=== PATIENT | female | born 1960 | race Caucasian/White ===

== ENCOUNTER → 2021-04-05 | Outpatient (CLI) | payer OTHER ==
[2014-04-17 11:25] VITALS: BP 96/53
[~2021-04-05] MED LIST: ACET500T33 PO; ASCO500C PO; CALC500T54 PO; CALC625T PO; CHOL5000 PO; CYCL1DRO OP; DOCU50CA9 PO; FEXO1TAB27 PO; GUAI-40 PO; HYDR-2761 PO; IBUP200T58 PO; LACT1CAP37 PO; LEVO50TA5 PO; LYSI500T8 PO; MELA5TAB20 PO; OMEG1CAP27 PO; OMEP20CA16 PO; PANT40TA77 PO; POLY17PO29 PO; TRIA10.8 NS; ZINC50TA39 PO
--- NOTE | 2021-04-05 17:17 | PDOC1 ---
INITIAL PAIN CONSULT DATE OF SERVICE: DOS: DATE: 04/05/21 TIME: 17:10 CHIEF COMPLAINT: Chief Complaint: Low back and left lower extremity pain HISTORY OF PRESENT ILLNESS: 60-year-old female presents with history of pain low back and left lower extremity since 2016. Patient reports not the result of any specific injury or accident that she is aware but is been getting worse with time with pain in the low back rating to left lower extremity mostly in the posterior gluteus lateral thigh anterior thigh medial thigh medial lower leg as well as in the calf and some in the lateral calf with numbness and tingling in all of the toes. Patient reports standing is worse sometimes walking can help but sometimes it makes it worse as well wakes her up at night fairly frequently does not affect her bowel bladder control does affect her ability to walk on occasion but she is not use any assistive devices. Patient reports she has had physical therapy as well as chiropractic treatment and is currently doing exercise which did all help decrease the pain but not significantly patient reports he is taking Advil as well as Tylenol which helped the pain but only by about 20 to 30% as well patient rates her disability rating 0-10 10 being the worst is a 7 with family home responsibilities for with recreation 1 with social activity 5 with occupation and sexual behavior 0 with self-care and life support activities. Patient is recent seen her neurosurgeon who is recommending conservative therapies at this time. Patient did have an MRI scan of the lumbar spine showing multilevel degenerative changes L4-5 showing diffuse annular disc bulging most pronounced left laterally resulting in mild right foraminal narrowing and mild to moderate left foraminal narrowing small synovial cyst at the L5-S1 level on the posterior facet joints without significant foraminal narrowing. Patient describes the pain as throbbing aching tingling with numbness radiating pain to the lower extremities and aching in the back as well PAST MEDICAL HISTORY: PMH: Arthritis, hearing loss, gastroesophageal reflux PREVIOUS SURGERIES: Past Surgical Hx: Cervical fusion C5-6, cholecystectomy, sinus surgery, bilateral cataract extraction, tonsillectomy, ear surgery CURRENT MEDICATIONS: Current Meds: Active Scripts Medications Dose Route/Sig Max Daily Dose Days Date Category Dose Instructions Melatonin 5 Mg Tab.rapdis 1 Tab PO QHS 30 04/05/21 Reported Probiotic (Lactobacillus Combo No.10) 1 Each Capsule 1 Tab PO DAILY 04/05/21 Reported Zinc 50 Mg Tablet 50 Mg PO DAILY 04/05/21 Reported Stool Softener (Docusate Sodium) 50 Mg Capsule 5 Cap PO DAILY 30 04/05/21 Reported Vitamin D3 (Vitamin D) 125 Mcg Capsule 125 Mcg PO DAILY 04/05/21 Reported 5,000 UNITS = 125 MCG Vitamin C (Ascorbic Acid) 500 Mg Capsule.er 1 Cap PO DAILY 30 04/05/21 Reported Calcium (Calcium Carbonate) 500 Mg Tab.chew 2 Tab PO BID 30 04/05/21 Reported Fish Oil 1,000 Mg Softgel ([place]-3 Fatty Acids/Fish Oil) 1 Each Capsule 2 Cap PO DAILY 30 04/05/21 Reported WITH MEALS L-Lysine (Lysine) 500 Mg Tablet 1,000 Mg PO DAILY 04/05/21 Reported Cequa (Cyclosporine) 1 Each Droperette 1 Each OP DAILY 04/05/21 Reported Omeprazole 20 Mg Capsule.dr 1 Cap PO DAILY 04/05/21 Reported Levothyroxine Sodium 50 Mcg Tablet 1 Tab PO DAILY 04/05/21 Reported Nasacort (Triamcinolone Acetonide) 10.8 Ml [place] 2 [place] NS DAILY 04/05/21 Reported Lily-D 12 Hour Tablet (Fexofenadine/Pseudoephedrine) 1 Each Tab.er.12h 1 Tab PO BID 10 04/05/21 Reported Fibercon (Calcium Polycarbophil) 625 Mg Tablet 3 Tab PO HS 04/05/14 Reported Last dose 04/16 next dose due 04/17 at bedtime. Miralax (Polyethylene Glycol 3350) 17 Gm Powd.pack 1 Pkt PO DAILY 04/05/14 Reported Not given this hospitalization May resume at home as ordered by doctor. ALLERGIES; Allergies: Coded Allergies: lactose (Verified Allergy, Intermediate, Nausea and Vomiting, 04/17/14) causes increased mucous and exacerbates sinus allergies FAMILY HISTORY: Family Hx: Parkinson's disease, dementia, diabetes SOCIAL HISTORY: Social Hx: Patient is nondrug alcohol does not smoke says any illegal is recreational drugs is lives with her spouse with 1 child living at home and lives in [facility] REVIEW OF SYSTEMS: ROS: Positive for those items mentioned in history of present illness, all systems are reviewed, otherwise negative ,and are complete full and well-documented on patient's chart. PHYSICAL EXAM: VS: Blood pressure is 108/63 pulse 84 respirations 16 temperature 90.0 F height is 5 feet 3 inches weight is 114 pounds PE: PHYSICAL EXAMINATION: GENERAL: The patient is awake, alert, oriented, appropriate, very pleasant in demeanor HEENT: Shows normocephalic, atraumatic. Extraocular movements are intact and symmetrical. Oral cavity: Mucous membranes moist and pink. Dentition is intact. NECK: Shows anterior throat supple without palpable lymphadenopathy noted. Swallow reflex symmetrical. CHEST: Shows normal on inspection. Breath sounds are clear bilaterally, distant but no rales rhonchi wheezes auscultated. HEART: Shows S1, S2 clear. No murmurs auscultated. ABDOMEN: Soft, nontender, nondistended. No palpable organomegaly is noted. BACK: Shows spine grossly in the midline. Normal-appearing cervical lordotic curvature. There is mildly increased thoracic kyphosis, some minor flattening of the lumbar lordotic curvature. Lumbar paraspinous muscles show symmetrical on inspection, on palpation shows some moderate tenderness diffusely throughout the upper, middle and lower distribution of the paraspinous muscles bilaterally and also into the lower thoracic paraspinous musculature, firm and tender, without specific trigger points, without radiation of pain. The patient has good rotational motion of the lumbar spine, both laterally as well as extension and flexion without significant difficulty. No tenderness over the spinous processes, sacrum or sacroiliac regions. EXTREMITIES: Lower extremities show deep tendon reflexes 2+ in the patellar and tendo calcaneus tendons. Motor exam is 5 on a scale of 5 with right dorsiflexion, extension, quadriceps and hamstring flexion and 4/5 on the left. Peripheral pulses are 1 posterior tibial. No peripheral edema is noted bilaterally. Lower extremities are warm and dry to touch, equal in color and appearance. Straight leg raise noted to be negative on the right, positive on the left at approximate 40 degrees decreased with knee flexion. Gaenslen's and Curtis's maneuvers are negative bilaterally. The patient is able to stand, stand on her toes that significant difficulty loss of balance, walks with a normal-appearing gait appear to favor her left lower extremity significantly is not use any assistive devices to ambulate. SKIN: Shows warm and dry, good turgor. No edema. No sores, rashes or bruising throughout. IMPRESSION: Impression: 60-year-old female with approximate 5-year history low back left lower extremity pain and radicular fashion following L4-5 dermatomal distribution. MRI scan lumbar spine as noted Arthritis Plan: Options were discussed with patient including continued physical therapies medication management and interventional techniques. Patient would like to pursue eventual techniques as she is done physical therapy as well as chiropractic treatment without significant improvement as well as oral analgesics without significant reduction in pain. We discussed a lumbar transforaminal epidural steroid injection description as well as anatomical models described procedure. Patient would like to proceed. Patient will wait for preauthorization with her insurance provider, once obtained we will proceed with a transforaminal lumbar epidural steroid injection at the L4-5 level on the left with fluoroscopic guidance. In the meantime, patient continue with stretching strength exercises as tolerated as well as oral analgesics as currently. SANDRA BOYER MD Apr 05, 2021 17:16
== END | disposition home or self-care (01) ==
LOC: PNCL 08:19
PROVIDERS: ATTEND Anesthesiology
DX: M54.16 Radiculopathy, lumbar region (principal); G89.29 Other chronic pain; K21.9 Gastro-esophageal reflux disease without esophagitis; M19.90 Unspecified osteoarthritis, unspecified site; Z98.890 Other specified postprocedural states; Z79.899 Other long term (current) drug therapy; Z98.41 Cataract extraction status, right eye; Z98.42 Cataract extraction status, left eye
CPT/HCPCS: 99214; G0463

== ENCOUNTER → 2021-04-19 | Outpatient (CLI) | payer OTHER ==
[2014-04-17 11:25] VITALS: BP 96/53
[~2021-04-19] MED LIST changes: +BUPIVACAINE MPF 0.25% 10 ML VIAL. ONE; +IOHEXOL 180 MG/ML 10 ML VIAL. ONE; +methylPREDNISolone ACETATE 80 MG/ML VIAL. ONE
--- NOTE | 2021-04-19 08:43 | PDOC ---
Progress Note - Pain Clinic Date of Service: DOS: DATE: 04/19/21 TIME: 08:38 Diagnosis: Dx: Lumbar radiculopathy with lumbar degenerative disc disease History or Present Illness: HPI: 60-year-old female returns for follow-up status post evaluation with complaints of low back and left lower extremity pain posterior gluteus lateral thigh anterior thigh medial thigh medial lower leg into the ankle as well as across the low back patient reports a 6 on scale 10 is worse over the past week for an average 1 its least is a 4 today patient scribes aching sharp alternating with dull pain the back or tingling and radiating in the left lower extremity which i s worse with walking standing changing positions better with sitting or laying down. Patient is going to her chiropractor which is helpful to some extent but only temporarily. Patient reports no bowel or bladder incontinence no loss of motor function with significant fatigability with left lower extremity. Physical Exam: VS: Blood pressure is 118/67 pulse 99 respirations 18 temperature 98.2 F height is 5 feet 3 inches weight is 114 pounds PE: PHYSICAL EXAMINATION: GENERAL: The patient is awake, alert, oriented, appropriate, very pleasant in demeanor HEENT: Shows normocephalic, atraumatic. Extraocular movements are intact and symmetrical. Oral cavity: Mucous membranes moist and pink. Dentition is intact. NECK: Shows anterior throat supple without palpable lymphadenopathy noted. Swallow reflex symmetrical. CHEST: Shows normal on inspection. Breath sounds are clear bilaterally. HEART: Shows S1, S2 clear. No murmurs auscultated. ABDOMEN: Soft, nontender, nondistended. No palpable organomegaly is noted. BACK: Shows spine grossly in the midline. Normal-appearing cervical lordotic curvature. There is slightly increased thoracic kyphosis, some minor flattening of the lumbar lordotic curvature. Lumbar paraspinous muscles show symmetrical on inspection, on palpation shows some moderate tenderness diffusely throughout the upper, middle and lower distribution of the paraspinous muscles, but without specific trigger points, without radiation of pain. The patient has good rotational motion of the lumbar spine, both laterally as well as extension and flexion without significant difficulty. EXTREMITIES: Lower extremities show deep tendon reflexes 2+ in the patellar and tendo calcaneus tendons. Motor exam is 5 on a scale of 5 with right dorsiflexion, extension, quadriceps and hamstring flexion and 5/5 on the left. Peripheral pulses are 1+ posterior tibial. no peripheral edema is noted bilaterally. Lower extremities are warm and dry to touch, equal in color and appearance. SKIN: Shows warm and dry, good turgor. No edema. No sores, rashes or bruising throughout. Procedure: Procedure: Options were discussed with patient. Patient chart was reviewed as her current medication regimen updated current review of systems updated today as well. We will proceed with a left lumbar L4-5 transforaminal epidural steroid injection with fluoroscopic guidance. Risks were discussed including but not limited to: Bleeding, infection, possibility of epidural hematoma and subsequent neurological compromise, dural puncture, headaches, spinal cord and/or nerve damage, potential injection of the vertebral artery at that level and permanent ischemic damage, side effects of steroid medication, and poor results regarding pain control. Patient understands and wished to proceed. Patient return to clinic in approximate 2 weeks for follow-up, was counseled as to return appointment, activity level, and side effects beware of. Medication Injected: Med Injected: Under sterile prep and drape patient was placed in prone position using C-arm fluoroscopic guidance to identify the L4-5 distribution oblique and slightly cephalad angled C arm. The left L4-5 target was identified and using lidocaine for anesthetizing the skin 22-gauge Cookie pencil point needle was then used to enter the skin and into the subcutaneous tissues using direct C-arm fluoroscopic guidance to guide the needle into the transforaminal aspect of the left L4-5 vertebrae this was confirmed with lateral views showing the needle tip in the superior aspect of the paravertebral region. Aspiration was noted to be negative, -1.5 cc of contrast was then injected with good spread both medially into the epidural space as well as laterally along the nerve root without uptake and without distribution and uptake on digital subtraction. At this time, a solution containing 2 cc of 0.25% bupivacaine and 80 mg of Depo-Medrol was then injected. Needle was withdrawn and sterile bandage was applied. Patient tolerated procedure well had no immediate complications Condition at Discharge: Condition at Discharge: Condition at discharge stable, patient tolerated procedure well and had no complications. SANDRA BOYER MD Apr 19, 2021 08:43
--- NOTE | 2021-04-19 08:44 | PDOC4 ---
Procedure Note: ICD 10 Code: ICD 10 Code: M54.16 M51.36 Procedure Note: Patient was consented for left L4-5 lumbar transforaminal epidural steroid injection with fluoroscopic guidance. Risks were discussed including but not limited to: Bleeding, infection, possibility of epidural hematoma and subsequent neurological compromise, dural puncture, headaches, spinal cord and/or nerve damage, side effects of steroid medication, potential injection into the vertebral artery at that level and permanent ischemic damage, and poor results regarding pain control. Patient understands and wished to proceed. Under sterile prep and drape patient was placed in prone position using C-arm fluoroscopic guidance to identify the L4-5 distribution oblique and slightly cephalad angled C arm. The left L4-5 target was identified and using lidocaine for anesthetizing the skin 22-gauge Cookie pencil point needle was then used to enter the skin and into the subcutaneous tissues using direct C-arm fluoroscopic guidance to guide the needle into the transforaminal aspect of the left L4-5 vertebrae this was confirmed with lateral views showing the needle tip in the superior aspect of the paravertebral region. Aspiration was noted to be negative, -1.5 cc of contrast was then injected with good spread both medially into the epidural space as well as laterally along the nerve root without uptake and without distribution and uptake on digital subtraction. At this time, a solution containing 2 cc of 0.25% bupivacaine and 80 mg of Depo-Medrol was then injected. Needle was withdrawn and sterile bandage was applied. Patient tolerated procedure well had no immediate complications SANDRA BOYER MD Apr 19, 2021 08:44
== END | disposition home or self-care (01) ==
LOC: PNCL 07:59
PROVIDERS: ATTEND Anesthesiology
DX: M51.16 Intervertebral disc disorders with radiculopathy, lumbar region (principal); M19.90 Unspecified osteoarthritis, unspecified site; Z79.899 Other long term (current) drug therapy; Z90.49 Acquired absence of other specified parts of digestive tract; Z98.890 Other specified postprocedural states; Z88.8 Allergy status to other drugs, medicaments and biological substances; Z82.49 Family history of ischemic heart disease and other diseases of the circulatory system
CPT/HCPCS: 64483; J1040; J3490; Q9965

== ENCOUNTER → 2021-05-03 | Outpatient (CLI) | payer OTHER ==
[2014-04-17 11:25] VITALS: BP 96/53
[~2021-05-03] MED LIST changes: -BUPIVACAINE MPF 0.25% 10 ML VIAL. ONE; -IOHEXOL 180 MG/ML 10 ML VIAL. ONE; -methylPREDNISolone ACETATE 80 MG/ML VIAL. ONE
--- NOTE | 2021-05-03 10:33 | PDOC ---
Progress Note - Pain Clinic Date of Service: DOS: DATE: 05/03/21 TIME: 10:29 Diagnosis: Dx: Lumbar radiculopathy with lumbar degenerative disease Right wrist joint pain first digit carpometacarpal osteoarthritis History or Present Illness: HPI: 60-year-old female returns for follow-up status post lumbar transforaminal injection L4-5 on the left side. Patient reports he did very well with about 75 % improvement initially now about 50% improvement of the pain is returning in the low back and left lower extremity. Patient reports that it is much better initially she do much better distance walking doing household activities work activities travel with greater ease and comfort and sleeping better at night. Patient reports it took a few days before the pain was significantly reduced but then it was much better and she was increase activity accordingly. Patient reports she still doing better with sitting or laying down does not awaken her from sleep generally but the pain is returning in the low back left lower extremity posterior gluteus posterior lateral thigh lateral anterior thigh anterior medial thigh and medial lower leg to the ankle and to the top of the foot patient reports is an 8 on scale 10 is worst over the past week 5 on average 3 its least and is a 5 today patient ports aching tingling in the back and the left leg. Patient also has secondary complaint of right wrist joint pain at the radial aspect with repetitive motion and painting skills using her right hand as she is right-hand dominant. Patient reports that ibuprofen has been helping this but only moderately. Patient reports no new bowel or bladder incontinence or other complaints. Patient continues with stretching strength exercise and walking daily with her up to 1 to 2 miles. Patient also using heat application to the low back which is helpful also. Physical Exam: VS: Blood pressure is 106/56 pulse 101 respirations 20 temperature is 98.6 F height is 5 feet 3 inches weight is 114 pounds PE: PHYSICAL EXAMINATION: GENERAL: The patient is awake, alert, oriented, appropriate, very pleasant in demeanor HEENT: Shows normocephalic, atraumatic. Extraocular movements are intact and symmetrical. Oral cavity: Mucous membranes moist and pink. Dentition is intact. NECK: Shows anterior throat supple without palpable lymphadenopathy noted. Swallow reflex symmetrical. CHEST: Shows normal on inspection. Breath sounds are clear bilaterally, distant no rales or rhonchi. HEART: Shows S1, S2 clear. No murmurs auscultated. ABDOMEN: Soft, nontender, nondistended. No palpable organomegaly is noted. BACK: Shows spine grossly in the midline. Normal-appearing cervical lordotic curvature. There is slightly increased thoracic kyphosis, some minor flattening of the lumbar lordotic curvature. Lumbar paraspinous muscles show symmetrical on inspection, on palpation shows some moderate tenderness diffusely throughout the upper, middle and lower distribution of the paraspinous muscles, but without specific trigger points, without radiation of pain. The patient has good rotational motion of the lumbar spine, both laterally as well as extension and flexion without significant difficulty. No tenderness over the spinous processes, sacrum or sacroiliac regions. EXTREMITIES: Lower extremities show deep tendon reflexes 2+ in the patellar and tendo calcaneus tendons. Motor exam is 5 on a scale of 5 with right dorsiflexion, extension, quadriceps and hamstring flexion and 5/5 on the left. Peripheral pulses are 1+ posterior tibial. No peripheral edema is noted bilaterally. Lower extremities are warm and dry. SKIN: Shows warm and dry, good turgor. No edema. No sores, rashes or bruising throughout. Procedure: Procedure: Options discussed with the patient. Patient chart was reviewed as her current medication regimen updated current review of systems updated today as well. We will preauthorize patient for a second left L4-5 transforaminal epidural steroid injection with fluoroscopic guidance. Patient will continue with stretching think exercise in the meantime as well as oral analgesics as currently. Also preauthorize patient for right intermediate first joint carpometacarpal injection. Medication Injected: Med Injected: None Condition at Discharge: Condition at Discharge: Condition at discharge is stable. SANDRA BOYER MD May 03, 2021 10:33
== END | disposition home or self-care (01) ==
LOC: PNCL 09:13
PROVIDERS: ATTEND Anesthesiology
DX: M51.16 Intervertebral disc disorders with radiculopathy, lumbar region (principal); M19.031 Primary osteoarthritis, right wrist; Z79.899 Other long term (current) drug therapy; Z90.49 Acquired absence of other specified parts of digestive tract; Z98.890 Other specified postprocedural states; Z88.8 Allergy status to other drugs, medicaments and biological substances; Z82.49 Family history of ischemic heart disease and other diseases of the circulatory system
CPT/HCPCS: 99212; G0463

== ENCOUNTER → 2021-05-09 | Outpatient (CLI) | payer OTHER ==
[2014-04-17 11:25] VITALS: BP 96/53
--- NOTE | 2021-05-09 09:27 | PDOC4 ---
Procedure Note: ICD 10 Code: ICD 10 Code: M1 8.11 Procedure Note: Patient was consented for right wrist first carpometacarpal joint injection with fluoroscopic guidance. Risks were discussed including but not limited to bleeding infection possibility of intravascular injection sequelae spread local anesthetic numbness side effects steroid medications post arthroscopy importance regarding pain control. Patient understands wished to proceed. Under sterile prep and drape patient sitting position right wrist extended on fluoroscopy table using video fluoroscopy guidance right first carpometacarpal joint was identified and injected using 25-gauge needle under direct visualization with fluoroscopy negative aspiration was noted and solution of 2 cc 0.25% ropivacaine and 40 mg Depo-Medrol was injected into the right first me tacarpal joint. Needle was withdrawn and sterile bandage was applied. Patient tolerated procedure well and had no complications. SANDRA BOYER MD May 09, 2021 09:27
--- NOTE | 2021-05-09 09:27 | PDOC ---
Progress Note - Pain Clinic Date of Service: DOS: DATE: 05/09/21 TIME: : Diagnosis: Dx: Lumbar radiculopathy with lumbar degenerative disease Right wrist carpometacarpal first joint osteoarthritis History or Present Illness: HPI: 60-year-old female returns status post transforaminal injection left L4-5 with very good results 75% improvement chief complaint however is radial wrist pain with the pain at the lateral aspect of the wrist with repetitive motions patient is a professional sign writer letterer or painter and this is aggravating her ability to pain to significantly patient rates as a 10 on scale 10 is worst eight on average five its least is eight today patient scribes aching tight shooting in the wrist and right thumb burning cramping stabbing can be radiating and severe with use. P atient does notice some swelling at the right wrist as well on the radial side patient reports it wakes her from sleep about every 6-8 hours if she rolls on her right side of her with bending of her right wrist patient reports no loss of motor function but significant fatigability of the right thumb and significant pain in the wrist with repetitive motion and any weightbearing with the arm and hand gripping or twisting and gripping motions with the right wrist and painting exacerbates it significantly as well. Patient reports no loss of motor function. Patient also has pain in the low back left lower extremity posterior gluteus lateral thigh anterior thigh medial thigh which is returning fairly significantly since her last treatment as well. Patient reports no bowel or bladder incontinence. Physical Exam: VS: Blood pressure 122/67 pulse 57 respirations are 18 temperature 98.7 F height 5 foot 3 inches weight is 115 pounds PE: PHYSICAL EXAMINATION: GENERAL: The patient is awake, alert, oriented, appropriate, very pleasant in demeanor HEENT: Shows normocephalic, atraumatic. Extraocular movements are intact and symmetrical. Oral cavity: Mucous membranes moist and pink. Dentition is intact. NECK: Shows anterior throat supple without palpable lymphadenopathy noted. Swallow reflex symmetrical. CHEST: Shows normal on inspection. Breath sounds are clear bilaterally. HEART: Shows S1, S2 clear. No murmurs auscultated. ABDOMEN: Soft, nontender, nondistended. No palpable organomegaly is noted. BACK: Shows spine grossly in the midline. Normal-appearing cervical lordotic curvature. There is slightly increased thoracic kyphosis, some minor flattening of the lumbar lordotic curvature. Lumbar paraspinous muscles show symmetrical on inspection, on palpation shows some moderate tenderness diffusely throughout the upper, middle and lower distribution of the paraspinous muscles without specific trigger points, without radiation of pain. The patient has good rotat ional motion of the lumbar spine, both laterally as well as extension and flexion without significant difficulty. EXTREMITIES: Lower extremities show deep tendon reflexes 2+ in the patellar and tendo calcaneus tendons. Motor exam is five on a scale of 5 with right dorsiflexion, extension, quadriceps and hamstring flexion and five/5 on the left. Peripheral pulses are 1+ posterior tibial. No peripheral edema is noted bilaterally. Lower extremities are warm and dry to touch, equal in color and appearance. 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 Patient's right wrist shows significant swelling on the ulnar aspect lateral of the wrist at the carpometacarpal joint with significant tenderness with palpation over the joint both medially and posteriorly without radiation. Peripheral pulses are 2+ radial bilaterally. SKIN: Shows warm and dry, good turgor. No edema. No sores, rashes or bruising throughout. Procedure: Procedure: Options discussed with patient. Patient chart was reviewed as her current medication regimen updated current review of systems updated today as well. We will proceed with a right carpometacarpal first joint injection with fluoroscopic guidance. Risk were discussed including but not limited to bleeding infection possibility of intravascular injection sequelae spread local anesthetic and numbness side effects steroid medications post arthroscopy and portals regarding pain control. Patient understands wished to proceed. Patient return to clinic in approximate 1 week for follow-up, with subsequent appointment, activity level, and side effect to be aware of. Medication Injected: Med Injected: Under sterile prep and drape patient sitting position right wrist extended on fluoroscopy table using video fluoroscopy guidance right first carpometacarpal joint was identified and injected using 25-gauge needle under direct visualization with fluoroscopy negative aspiration was noted and solution of 2 cc 0.25% ropivacaine and 40 mg Depo-Medrol was injected into the right first metacarpal joint. Needle was withdrawn and sterile bandage was applied. Patient tolerated procedure well and had no complications. Condition at Discharge: Condition at Discharge: Condition at discharge stable, paced tolerated procedure well had no complications. SANDRA BOYER MD May 09, 2021 09:27
== END | disposition home or self-care (01) ==
LOC: PNCL 08:47
PROVIDERS: ATTEND Anesthesiology
DX: M19.031 Primary osteoarthritis, right wrist (principal); M51.16 Intervertebral disc disorders with radiculopathy, lumbar region; M18.11 Unilateral primary osteoarthritis of first carpometacarpal joint, right hand; Z90.49 Acquired absence of other specified parts of digestive tract; Z98.890 Other specified postprocedural states; Z79.899 Other long term (current) drug therapy; Z88.8 Allergy status to other drugs, medicaments and biological substances
CPT/HCPCS: 20605; 77002

== ENCOUNTER → 2021-05-11 | Outpatient (CLI) | payer OTHER ==
[2014-04-17 11:25] VITALS: BP 96/53
[~2021-05-11] MED LIST changes: +BUPIVACAINE MPF 0.25% 10 ML VIAL. ONE; +IOHEXOL 180 MG/ML 10 ML VIAL. ONE; +methylPREDNISolone ACETATE 40 MG/ML VIAL. ONE; +methylPREDNISolone ACETATE 80 MG/ML VIAL. ONE
--- NOTE | 2021-05-11 10:51 | PDOC ---
Progress Note - Pain Clinic Date of Service: DOS: DATE: 05/11/21 TIME: 10:50 Diagnosis: Dx: [facility] [address] [place], [place] [address] PHYSICIAN SERVICES Progress Notes : [id number] Signed Patient: GEOFFREY DUBON Acct:[id number] Unit: [id number] : 04/02/1944 Loc: [facility] Room/Bed : Age/Sex: 77 / M ADM Status: REG CLI ADM Date: 05/11/21 Progress Note - Pain Clinic Date of Service: DOS: DATE: 05/11/21 TIME: 10:16 Diagnosis: Dx: Lumbar radiculopathy lumbar degenerative disc disease Right wrist first carpometacarpal joint osteoarthritis History or Present Illness: HPI: 60-year-old female returns for follow-up status post right wrist joint carpometacarpal injection with about 50% improvement patient reports her chief complaint today is low back and left lower extremity pain in the posterior gluteus lateral thigh anterior thigh medial thigh medial lower leg into the medial ankle and foot worse on the left side patient reports no loss of motor function with significant fatigability with standing walking standing patient reports is an 8 on scale 10 is worse over the past week 5 on average to its least is a 5 today patient describes a tingling aching dull tight in the back on and off intensity again worse with activity better with sitting or laying down generally does not awaken her from sleep at night. Patient reports heat does decrease the pain to some extent in the left side of the low back as well but not completely. Patient reports no bowel or bladder incontinence. Physical Exam: VS: Blood pressure is 114/64 pulse 84 respirations 18 temperature 98.4 F height is 5 feet 3 inches weight is 114 pounds PE: PHYSICAL EXAMINATION: GENERAL: The patient is awake, alert, oriented, appropriate, very pleasant in demeanor HEENT: Shows normocephalic, atraumatic. Extraocular movements are intact and symmetrical. Oral cavity: Mucous membranes moist and pink. Dentition is intact. NECK: Shows anterior throat supple without palpable lymphadenopathy noted. Swallow reflex symmetrical. CHEST: Shows normal on inspection. Breath sounds are clear bilaterally. HEART: Shows S1, S2 clear. No murmurs auscultated. ABDOMEN: Soft, nontender, nondistended. No palpable organomegaly is noted. BACK: Shows spine grossly in the midline. Normal-appearing cervical lordotic curvature. There is slightly increased thoracic kyphosis, some minor flattening of the lumbar lordotic curvature. Lumbar paraspinous muscles show symmetrical on inspection, on palpation shows some moderate tenderness diffusely throughout the upper, middle and lower distribution of the paraspinous muscles without specific trigger points, without radiation of pain. The patient has good rotational motion of the lumbar spine, both laterally as well as extension and flexion without significant difficulty. Mild tenderness over the left posterior superior iliac spine but without radiation. EXTREMITIES: Lower extremities show deep tendon reflexes 2+ in the patellar and tendo calcaneus tendons. Motor exam is 5 on a scale of 5 with right dorsiflexion, extension, quadriceps and hamstring flexion and 5/5 on the left. Peripheral pulses are 1 posterior tibial. No peripheral edema is noted bila terally. Lower extremities are warm and dry to touch, equal in color and appearance. SKIN: Shows warm and dry, good turgor. No edema. No sores, rashes or bruising throughout. Procedure: Procedure: Options were discussed with the patient. Patient's old chart reviews her current medication regimen updated current review of systems updated today as well. We will proceed with a left L4-5 transforaminal epidural steroid injection with fluoroscopic guidance. Risks were discussed including but not limited to: Bleeding, infection, possibility of epidural hematoma and subsequent neurological compromise, dural puncture, headaches, spinal cord and/or nerve damage, potential injection of the vertebral artery at that level and permanent ischemic damage, side effects of steroid medication, and poor results regarding pain control. Patient understands and wished to proceed. Patient will return to clinic in approximate 2 weeks for follow-up, was counseled as return appointment, activity level, and side effect to be aware of. Medication Injected: Med Injected: Under sterile prep and drape patient was placed in prone position using C-arm fluoroscopic guidance to identify the L4-5 distribution oblique and slightly cephalad angled C arm. The left L4-5 target was identified and using lidocaine for anesthetizing the skin 22-gauge Cookie pencil point needle was then used to enter the skin and into the subcutaneous tissues using direct C-arm fluoroscopic guidance to guide the needle into the transforaminal aspect of the left L4-5 vertebrae this was confirmed with lateral views showing the needle tip in the superior aspect of the paravertebral region. Aspiration was noted to be negative, -1.5 cc of contrast was then injected with good spread both medially into the epidural space as well as laterally along the nerve root without uptake and without distribution and uptake on digital subtraction. At this time, a solution containing 2 cc of 0.25% bupivacaine and 80 mg of Depo-Medrol was then injected. Needle was withdrawn and sterile bandage was applied. Patient tolerated procedure well had no immediate complications Condition at Discharge: Condition at Discharge: Condition at discharge stable, patient Cathy the procedure well and had no complications. Physical Exam: PE: SANDRA BOYER MD May 11, 2021 10:51
--- NOTE | 2021-05-11 10:54 | FMN ---
PT PROBLEMS Patient dictation was initially on the incorrect patient chart and was moved from incorrect patient's chart to correct patient's chart for SANDRA Dumont MD May 11, 2021 10:54
== END | disposition home or self-care (01) ==
LOC: PNCL 09:04
PROVIDERS: ATTEND Anesthesiology
DX: M51.16 Intervertebral disc disorders with radiculopathy, lumbar region (principal); M18.11 Unilateral primary osteoarthritis of first carpometacarpal joint, right hand; Z79.899 Other long term (current) drug therapy; Z90.49 Acquired absence of other specified parts of digestive tract; Z98.890 Other specified postprocedural states; Z88.8 Allergy status to other drugs, medicaments and biological substances
CPT/HCPCS: 64483; J1030; J1040; J3490; Q9965

== ENCOUNTER → 2021-05-18 | Outpatient (CLI) | payer OTHER ==
[2014-04-17 11:25] VITALS: BP 96/53
[~2021-05-18] MED LIST changes: -BUPIVACAINE MPF 0.25% 10 ML VIAL. ONE; -IOHEXOL 180 MG/ML 10 ML VIAL. ONE; -methylPREDNISolone ACETATE 40 MG/ML VIAL. ONE; -methylPREDNISolone ACETATE 80 MG/ML VIAL. ONE
--- NOTE | 2021-05-18 11:12 | PDOC ---
Progress Note - Pain Clinic Date of Service: DOS: DATE: 05/18/21 TIME: 11:06 Diagnosis: Dx: Lumbar radiculopathy with lumbar degenerative disease Right wrist carpometacarpal first joint osteoarthritis History or Present Illness: HPI: 60-year-old female returns for follow-up status post right wrist first joint carpometacarpal injection with about 50% improvement patient reports pain is increasing however in the right wrist but her chief complaint today is low back and left lower extremity pain patient reports is increasing the low back radiating to the posterior gluteus posterior thigh lateral thigh anterior thigh medial thigh medial lower leg into the foot. After Lasix lumbar transforaminal injection at L4-5 was doing much better with about a 75% improvement however the pain is returning now patient was increase her activity as well as using less oral analgesics but has started using them more often [id number] over the past week. Patient reports is worse with walking standing changing positions better with sitting or laying down initially she was doing much better with distance walking doing household activities work activities as well but the pain is becoming more significant in the left lower extremity. Patient rates it as an 8 on scale 10 is worst for an average 3 distillation is a 4 today patient ports aching tingling radiating in the left leg and also some sharp pain in the right wrist. Patient reports no bowel or bladder incontinence. Physical Exam: VS: Blood pressure is 110/66 pulse 81 respirations 18 temperature 98.1 F height is 5 foot 3 inches weight is 113 pounds PE: PHYSICAL EXAMINATION: GENERAL: The patient is awake, alert, oriented, appropriate, very pleasant in demeanor HEENT: Shows normocephalic, atraumatic. Extraocular movements are intact and symmetrical. Oral cavity: Mucous membranes moist and pink. Dentition is in tact. NECK: Shows anterior throat supple without palpable lymphadenopathy noted. Swallow reflex symmetrical. CHEST: Shows normal on inspection. Breath sounds are clear bilaterally. HEART: Shows S1, S2 clear. No murmurs auscultated. ABDOMEN: Soft, nontender, nondistended. No palpable organomegaly is noted. BACK: Shows spine grossly in the midline. Normal-appearing cervical lordotic curvature. There is slightly increased thoracic kyphosis, some flattening of the lumbar lordotic curvature. Lumbar paraspinous muscles show symmetrical on inspection, on palpation shows some moderate tenderness diffusely throughout the upper, middle and lower distribution of the paraspinous muscles, but without specific trigger points, without radiation of pain. The patient has good rotational motion of the lumbar spine, both laterally as well as extension and flexion without significant difficulty. EXTREMITIES: Lower extremities show deep tendon reflexes 2+ in the patellar and tendo calcaneus tendons. Motor exam is 5 on a scale of 5 with right dorsiflexion, extension, quadriceps and hamstring flexion and 4/5 on the left. Peripheral pulses are 1+ posterior tibial. No peripheral edema is noted bilaterally. Lower extremities are warm and dry to touch, equal in color and ap pearance. SKIN: Shows warm and dry, good turgor. No edema. No sores, rashes or bruising throughout. Procedure: Procedure: Options discussed with patient. Patient's old chart was reviewed as her current medication regimen updated current review of systems updated today as well. We will preauthorize patient for a left L4-5 transforaminal injection with fluoroscopic guidance as she did very well with the last injection with pain returning now in the L4-5 dermatomal distribution on the left. In the meantime patient will continue with stretching strength exercise as well as daily activities of walking and oral analgesics as currently. Once approved, patient will return for left transforaminal injection L4-5 with fluoroscopic guidance Medication Injected: Med Injected: None Condition at Discharge: Condition at Discharge: Condition at discharge is stable. SANDRA BOYER MD May 18, 2021 11:12
== END | disposition home or self-care (01) ==
LOC: PNCL 10:19
PROVIDERS: ATTEND Anesthesiology
DX: M51.16 Intervertebral disc disorders with radiculopathy, lumbar region (principal); M18.11 Unilateral primary osteoarthritis of first carpometacarpal joint, right hand; Z79.899 Other long term (current) drug therapy; Z90.49 Acquired absence of other specified parts of digestive tract; Z98.890 Other specified postprocedural states; Z88.8 Allergy status to other drugs, medicaments and biological substances
CPT/HCPCS: 99212; G0463

== ENCOUNTER → 2021-05-25 | Outpatient (CLI) | payer OTHER ==
[2014-04-17 11:25] VITALS: BP 96/53
[~2021-05-25] MED LIST changes: +BUPIVACAINE MPF 0.25% 10 ML VIAL. ONE; +IOHEXOL 180 MG/ML 10 ML VIAL. ONE; +methylPREDNISolone ACETATE 80 MG/ML VIAL. ONE
--- NOTE | 2021-05-25 09:59 | PDOC ---
Progress Note - Pain Clinic Date of Service: DOS: DATE: 05/25/21 TIME: 09:54 Diagnosis: Dx: Lumbar radiculopathy with lumbar degenerative disc disease Right wrist first carpometacarpal joint osteoarthritis History or Present Illness: HPI: 60-year-old female returns for follow-up after right wrist carpometacarpal first joint injection with good results with pain returned she is been wearing a new brace on her arm which is helpful as well patient chief complaint today however is low back and left lower extremity pain with pain rating the posterior gluteus lateral thigh anterior thigh medial thigh medial lower leg on the left side only. Patient which is worse with walking while she is staying very active and has been walking up to 4 miles a day but sometimes on the treadmill between 2 to 4 miles and more recently is been only 2 miles that she has had recent increase stiffness in her back and radiating pain in the leg which is limited her distance walking patient reports otherwise doing fairly well without motor or sensory deficits no bowel or bladder incontinence patient reports her pain to 5 on a scale 10 is worse over the past week 3 on average to its least and is a 3 today patient reports is tingling aching sharp and shooting and tight in the back as well as dull in the back. Patient reports no bowel or bladder incontinence. We discussed future treatments and will order new physical therapy for her today with stretching strength exercise as well as lumbar traction massage techniques as well as postural retraining. Physical Exam: VS: Blood pressure is 118/73 pulse 93 respirations 18 temperature is 97.9 F height is 5 foot 3 inches weight is 113 pounds PE: PHYSICAL EXAMINATION: GENERAL: The patient is awake, alert, oriented, appropriate, very pleasant in demeanor HEENT: Shows normocephalic, atraumatic. Extraocular movements are intact and symmetrical. Oral cavity: Mucous membranes moist and pink. Dentition is intact. NECK: Shows anterior throat supple without palpable lymphadenopathy noted. Swallow reflex symmetrical. CHEST: Shows normal on inspection. Breath sounds are clear bilaterally. HEART: Shows S1, S2 clear. No murmurs auscultated. ABDOMEN: Soft, nontender, nondistended. No palpable organomegaly is noted. BACK: Shows spine grossly in the midline. Normal-appearing cervical lordotic curvature. There is slightly increased thoracic kyphosis, some minor flattening of the lumbar lordotic curvature. Lumbar paraspinous muscles show symmetrical on inspection, on palpation shows some moderate tenderness diffusely throughout the upper, middle and lower distribution of the paraspinous muscles without specific trigger points, without radiation of pain. The patient has good rotational motion of the lumbar spine, both laterally as well as extension and flexion without significant difficulty. EXTREMITIES: Lower extremities show deep tendon reflexes 2+ in the patellar and tendo calcaneus tendons. Motor exam is 5 on a scale of 5 with right dorsiflexion, extension, quadriceps and hamstring flexion and 4/5 on the left. Peripheral pulses are 1+ posterior tibial. No peripheral edema is noted bilater ally. Lower extremities are warm and dry to touch, equal in color and appearance. SKIN: Shows warm and dry, good turgor. No edema. No sores, rashes or bruising throughout. Procedure: Procedure: Options were discussed with the patient. Patient chart reviews her current medication regimen updated current view of systems updated today as well. We will proceed with a left-sided L4-5 transforaminal steroid injection with fluoroscopic guidance. Risks were discussed including but not limited to: Bleeding, infection, possibility of epidural hematoma and subsequent neurological compromise, dural puncture, headaches, spinal cord and/or nerve damage, potential injection into the vertebral artery at that level and permanent ischemic damage, side effects of steroid medication, and poor results regarding pain control. Patient understands and wished to proceed. Patient will return to clinic in approximately 2 weeks for follow-up, was counseled as to return appointment, activity level, and side effect to be aware of. Medication Injected: Med Injected: Under sterile prep and drape patient was placed in prone position using C-arm fluoroscopic guidance to identify the L4-5 distribution oblique and slightly cephalad angled C arm. The left L4-5 target was identified and using lidocaine for anesthetizing the skin 22-gauge Cookie pencil point needle was then used to enter the skin and into the subcutaneous tissues using direct C-arm fluoroscopic guidance to guide the needle into the transforaminal aspect of the left L4-5 vertebrae this was confirmed with lateral views showing the needle tip in the superior aspect of the paravertebral region. Aspiration was noted to be negative, -1.5 cc of contrast was then injected with good spread both medially into the epidural space as well as laterally along the nerve root without uptake and without distribution and uptake on digital subtraction. At this time, a solution containing 2 cc of 0.25% bupivacaine and 80 mg of Depo-Medrol was then injected. Needle was withdrawn and sterile bandage was applied. Patient tolerated procedure well had no immediate complications Condition at Discharge: Condition at Discharge: Condition at discharge stable, patient tolerated the procedure well and had no complications. SANDRA BOYER MD May 25, 2021 09:59
== END | disposition home or self-care (01) ==
LOC: PNCL 09:24
PROVIDERS: ATTEND Anesthesiology
DX: M51.16 Intervertebral disc disorders with radiculopathy, lumbar region (principal); M18.11 Unilateral primary osteoarthritis of first carpometacarpal joint, right hand; Z79.899 Other long term (current) drug therapy; Z90.49 Acquired absence of other specified parts of digestive tract; Z98.890 Other specified postprocedural states; Z88.8 Allergy status to other drugs, medicaments and biological substances; Z82.49 Family history of ischemic heart disease and other diseases of the circulatory system
CPT/HCPCS: 64483; J1040; J3490; Q9965